=== PATIENT | male | born 1965 | race Caucasian/White ===

== ENCOUNTER → 2017-02-01 | Outpatient (CLI) | payer OTHER ==
--- NOTE | 2017-02-01 08:41 | CT ---
EXAMINATION TYPE: CT abdomen pelvis wo con DATE OF EXAM: 02/01/2017 7:56 AM COMPARISON: None HISTORY: Blood in urine and in stool CT DLP: 767.2 mGycm Automated exposure control for dose reduction was used. TECHNIQUE: Helical acquisition of images from the lung bases through the pelvis. Patient received or al contrast only. FINDINGS: Lack of intravenous contrast may compromise the exam sensitivity. LUNG BASES: No significant abnormality is appreciated. AORTA: No significant abnormality is appreciated. LIVER/GB: No significant abnormality is appreciated. PANCREAS: No significant abnormality is seen. SPLEEN: No significant abnormality is seen. ADRENALS: No significant abnormality is seen. KIDNEYS: No significant abnormality is seen. REPRODUCTIVE ORGANS: No significant abnormality is seen. URINARY BLADDER: No significant abnormality is seen. BOWEL: Retained fecal debris is present throughout the distribution of the colon. There is no bowel obstruction evident. The appendix is not seen. FREE AIR: No Free Air is visible. ASCITES: None visible. PELVIC ADENOPATHY: None visualized. RETROPERITONEAL ADENOPATHY: No Retroperitoneal Adenopathy visible. OSSEOUS STRUCTURES: Degenerative disc changes are present in the visualized spine. Postop change sta tus post posterior fusion L5-S1. Anterolisthesis grade 1 L4-5. Vacuum phenomenon present L4-5 and L5- S1. Dialysis noted in the sacral region, multilevel laminectomies present at the lumbosacral junction . IMPRESSION: LACK OF CONTRAST MAY COMPROMISE SENSITIVITY. CORRELATE FOR FECAL STASIS. Postop changes.
== END | disposition home or self-care (01) ==
LOC: RADCTMAIN 07:36
PROVIDERS: ATTEND Family Medicine
DX: R19.5 Other fecal abnormalities (principal); R31.9 Hematuria, unspecified; Z98.890 Other specified postprocedural states
CPT/HCPCS: 74176

== ENCOUNTER 2018-04-27 22:59 | Emergency (ER) | payer OTHER ==
[2018-04-27 23:08] VITALS: BP 159/106; PULSE 112; RESP 20; TEMP 98.6
--- NOTE | 2018-04-27 23:11 | ED ---
General Adult HPI - General Stated complaint: PAIN,CANCER PT Time Seen by Provider: 04/27/18 23:11 Source: patient Mode of arrival: wheelchair Limitations: no limitations - History of Present Illness Initial comments: Milton is a 52-year-old male with a past medical history of chronic pain secondary to cancer. Patient is on 200 mg of MS Contin orally every morning and every night. Patient reports that all of his medications have been filled by his primary care physician and that he has not been seen in ERs or by other physicians for his pain meds. Patient states that he puts all of his medications in a weekly pill box. He states that he recently had some construction work done at his house and noted that a few pills were missing. Patient states that he has been trying to take only one morning and one night pill for the past 2 days but is now out of pain pills for 2 days and is experiencing significant pain and nausea. Patient's in the ER requesting a refill for 3 days of his pain medications. - Related Data Home Medications Medication Instructions Recorded Confirmed Sertraline [Zoloft] 100 mg PO DAILY 06/08/15 04/27/18 Dextroamphetamine/Amphetamine 30 mg PO BID 04/27/18 04/27/18 [Adderall Xr] Morphine Sulfate ER [Ms Contin] 200 mg PO Q12H 04/27/18 04/27/18 Previous Rx's Medication Instructions Recorded Morphine Sulfate [Ms Contin] 200 mg PO Q12HR 3 Days #12 tab 04/27/18 Allergies Allergy/AdvReac Type Severity Reaction Status Date / Time codeine Allergy Severe Anaphylaxis Verified 04/27/18 23:38 tetracycline [Tetracycline] Allergy Severe Anaphylaxis Verified 04/27/18 23:38 Review of Systems ROS Statement: Those systems with pertinent positive or pertinent negative responses have been documented in the HPI. ROS Other: All systems not noted in ROS Statement are negative. Past Medical History Past Medical History: Cancer, Chest Pain / Angina, Neurologic Disorder, Pneumonia Additional Past Medical History / Comment(s): Fibromatosis diagnosed 1990. BRAIN TUMORS, Back Tumors BACK PAIN History of Any Multi-Drug Resistant Organisms: None Reported Past Surgical History: Back Surgery, Tonsillectomy Additional Past Surgical History / Comment(s): BRAIN SURGERY , SPINAL CORD SURGERIES TO REMOVE TUMORS Last one was 2011, Pt states has had 15 surgeries since diagnosis in 1990. Last done was brain surgery was done by Dr. Lori ohlcomb Past Anesthesia/Blood Transfusion Reactions: Previous Problems w/ Anesthesia Additional Past Anesthesia/Blood Transfusion Reaction / Comment(s): Low blood pressure Past Psychological History: ADD/ADHD, Anxiety, Depression Smoking Status: Never smoker Past Alcohol Use History: None Reported Past Drug Use History: None Reported General Exam Limitations: no limitations General appearance: alert, other (Appears uncomfortable) Head exam: Present: atraumatic, normocephalic Eye exam: Present: normal appearance ENT exam: Present: normal exam Neck exam: Present: normal inspection Respiratory exam: Absent: respiratory distress Cardiovascular Exam: Present: tachycardia GI/Abdominal exam: Present: soft Rectal exam: Present: deferred Neurological exam: Present: alert, oriented X3 Psychiatric exam: Present: normal affect, normal mood Skin exam: Present: warm, dry Course Vital Signs 04/27/18 23:06 Temperature 98.6 F Pulse Rate 112 H Respiratory 20 Rate Blood Pressure 159/106 O2 Sat by Pulse 97 Oximetry Medical Decision Making - Medical Decision Making The patient was seen and evaluated, history is obtained from the patient - patient concern that his pain medications may have been stolen and he is today short after having 2 days of taking only half doses. Review the patient's maps report and noted that though he did have multiple prescriptions for narcotics they were all from his primary care physician Dr. Keane and they were all filled at the same pharmacy. Patient did not have any prescriptions from any other provider in the past one year. On physical exam I do have concern that the patient is in acute narcotic withdrawal, he appears quite uncomfortable, he is mildly tachycardic rate with IM Dilaudid, Zofran ODT for nausea and I will prescribe him his usual nightly dose of MS Contin. In addition I will prescribe the patient 3 days of his normal dose of MS Contin. Patient is scheduled to see his primary care physician by the end of the week for refill of his regular medication. The patient's son at bedside to provide the patient with a ride home after being given narcotic pain medication. Disposition Clinical Impression: Encounter for medication refill Disposition: HOME SELF-CARE Condition: Good Instructions: Chronic Pain (ED) Prescriptions: Morphine Sulfate [Ms Contin] 200 mg PO Q12HR 3 Days #12 tab Is patient prescribed a controlled substance at d/c from ED?: Yes When asked, does pt state using other controlled substances?: Yes If prescribed controlled substance>3 days was MAPS reviewed?: Prescribed <3 Days If Rx opioid, was Start Talking consent form obtained?: Yes Referrals: Arjun Keane MD [Primary Care Provider] - 1-2 days Time of Disposition: 23:52
[2018-04-27] MEDS ORDERED: MORPHINE SULFATE ER 100 MG TABLET PO STA (23:19)
[2018-04-27] MEDS ORDERED: HYDROmorphone 1 MG/ML 1 ML SYRINGE IM STA (23:19)
[2018-04-27] MEDS ORDERED: ONDANSETRON ODT 4 MG TAB PO STA (23:20)
== END 2018-04-28 00:05 | disposition home or self-care (01) ==
LOC: EC 22:59
DX: Z76.0 Encounter for issue of repeat prescription (principal); G89.3 Neoplasm related pain (acute) (chronic); R11.0 Nausea; R00.0 Tachycardia, unspecified; F90.9 Attention-deficit hyperactivity disorder, unspecified type; F41.9 Anxiety disorder, unspecified; F32.9 Major depressive disorder, single episode, unspecified; Z87.39 Personal history of other diseases of the musculoskeletal system and connective tissue; Z85.9 Personal history of malignant neoplasm, unspecified; Z98.890 Other specified postprocedural states; Z79.891 Long term (current) use of opiate analgesic; Z79.899 Other long term (current) drug therapy; Z88.5 Allergy status to narcotic agent; Z88.1 Allergy status to other antibiotic agents
CPT/HCPCS: 99283; 96372; J1170

== ENCOUNTER 2025-01-18 00:08 | Emergency (ER) | payer OTHER ==
--- NOTE | 2025-01-18 00:30 | ED ---
General Adult HPI - General Chief complaint: Extremity Problem,Nontraumatic Stated complaint: med check Time Seen by Provider: 01/18/25 00:30 Source: patient, RN notes reviewed Mode of arrival: wheelchair Limitations: no limitations - History of Present Illness Initial comments: 59 year old male presenting to the ER for evaluation of generalized pain. Patient with a past medical history of neurofibromatosis, brain surgery and 21 spinal cord surgies. Patient reports he is presenting to the ER pain control. He is typically prescribed MS Contin 200 mg twice daily but states he is unable to get this refilled into tomorrow at 3 PM. He reports his pain is currently out of control and he has no medications that are controlling pain. Pain is generalized to all joints causing him to lose sleep. Patient denies any injuries, falls or other traumas. Patient denies any other complaints. - Related Data Home Medications Medication Instructions Recorded Confirmed Sertraline [Zoloft] 100 mg PO DAILY 06/08/15 04/27/18 Dextroamphetamine/Amphetamine 30 mg PO BID 04/27/18 04/27/18 [Adderall Xr] Morphine Sulfate ER [Ms Contin] 200 mg PO Q12H 04/27/18 04/27/18 Previous Rx's Medication Instructions Recorded Morphine Sulfate [Ms Contin] 200 mg PO Q12HR 3 Days #12 tab 04/27/18 Allergies Allergy/AdvReac Type Severity Reaction Status Date / Time codeine Allergy Severe Anaphylaxis Verified 01/18/25 00:18 tetracycline [Tetracycline] Allergy Severe Anaphylaxis Verified 01/18/25 00:18 Review of Systems ROS Statement: Those systems with pertinent positive or pertinent negative responses have been documented in the HPI. ROS Other: All systems not noted in ROS Statement are negative. Past Medical History Past Medical History: Cancer, Chest Pain / Angina, Neurologic Disorder, Pneumonia Additional Past Medical History / Comment(s): Fibromatosis diagnosed 1990. BRAIN TUMORS, Back Tumors BACK PAIN History of Any Multi-Drug Resistant Organisms: None Reported Past Surgical History: Back Surgery, Tonsillectomy Additional Past Surgical History / Comment(s): BRAIN SURGERY , SPINAL CORD SURGERIES TO REMOVE TUMORS Last one was 2011, Pt states has had 15 surgeries since diagnosis in 1990. Last done was brain surgery was done by Dr. Lori holcomb Past Anesthesia/Blood Transfusion Reactions: Previous Problems w/ Anesthesia Additional Past Anesthesia/Blood Transfusion Reaction / Comment(s): Low blood pressure Past Psychological History: ADD/ADHD, Anxiety, Depression Smoking Status: Never smoker Past Alcohol Use History: None Reported Past Drug Use History: None Reported General Exam Limitations: no limitations General appearance: alert, in no apparent distress Respiratory exam: Present: normal lung sounds bilaterally. Absent: respiratory distress, wheezes, rales, rhonchi, stridor Cardiovascular Exam: Present: regular rate, normal rhythm, normal heart sounds. Absent: systolic murmur, diastolic murmur, rubs, gallop, clicks Extremities exam: Present: full ROM, normal capillary refill (2+ bilateral radial and DP pulse). Absent: tenderness, pedal edema, joint swelling, calf tenderness Neurological exam: Present: alert, oriented X3, CN II-XII intact Psychiatric exam: Present: anxious Skin exam: Present: warm, dry, intact, normal color. Absent: rash Course Vital Signs 01/18/25 01/18/25 00:19 01:41 Temperature 97.8 F 97.9 F Pulse Rate 111 H 104 H Respiratory 22 21 Rate Blood Pressure 157/84 145/76 O2 Sat by Pulse 95 98 Oximetry Medical Decision Making - Medical Decision Making Was pt. sent in by a medical professional or institution (, PA, [employer], urgent care, hospital, or senior living...) When possible be specific @ -No Did you speak to anyone other than the patient for history (EMS, parent, family, police, friend...)? What history was obtained from this source @ -No Did you review nursing and triage notes (agree or disagree)? Why? @ -I reviewed and agree with nursing and triage notes Were old charts reviewed (outside hosp., previous admission, EMS record, old EKG, old radiological studies, urgent care reports/EKG's, senior living records)? Report findings @ -No old charts were reviewed Differential Diagnosis (chest pain, altered mental status, abdominal pain women, abdominal pain men, vaginal bleeding, weakness, fever, dyspnea, syncope, headache, dizziness, GI bleed, back pain, seizure, CVA, palpatations, mental health, musculoskeletal)? @ -Differential Musculoskeletal: Muscular strain, contusion, ligament sprain, fracture, arthritis, septic arthritis, bursitis, cellulitis, muscle spasm, nerve compression, DVT, arterial occlusion, herpes zoster, electrolyte abnormality, tumor.... This is not meant to be in all inclusive list EKG interpreted by me (3pts min.). @ -None X-rays interpreted by me (1pt min.). @ -None done CT interpreted by me (1pt min.). @ -None done U/S interpreted by me (1pt. min.). @ -None done What testing was considered but not performed or refused? (CT, X-rays, U/S, labs)? Why? @ -None What meds were considered but not given or refused? Why? @ -None Did you discuss the management of the patient with other professionals (professionals i.e. , PA, [employer], lab, RT, psych nurse, social service liaison, bakery worker, teacher, ordnance officer, nursery manager)? Give summary @ -No Was smoking cessation discussed for >3mins.? @ -No Was critical care preformed (if so, how long)? @ -No Were there social determinants of health that impacted care today? How? (Homelessness, low income, unemployed, alcoholism, drug addiction, transportation, low edu. Level, literacy, decrease access to med. care, detention, rehab)? @ -No Was there de-escalation of care discussed even if they declined (Discuss DNR or withdrawal of care, Hospice)? DNR status @ -No What co-morbidities impacted this encounter? (DM, HTN, Smoking, COPD, CAD, Cancer, CVA, ARF, Chemo, Hep., AIDS, mental health diagnosis, sleep apnea, morbid obesity)? @ -Neurofibromatosis 21 spinal cord surgeries, brain surgery Was patient admitted / discharged? Hospital course, mention meds given and route, prescriptions, significant lab abnormalities, going to OR and other pertinent info. @ -Discharge. 59-year-old male presented the ER for evaluation of generalized pain. Patient seeking pain control as he is unable to fill his MS Contin 200 mg prescription until tomorrow at 3pm. Patient does appear anxious on exam this is likely contributing to tachycardia. Vitals otherwise within acceptable limits. Patient is neurovascularly intact. Denies any injuries or traumas. Patient will receive IM morphine for pain control and discharged with p.o. morphine 100 mg to take upon waking in the morning until he can fill his prescription. Patient discharged stable condition with follow-up to PCP. Patient verbally expressed understanding agreement with care plan. Return parameters discussed. Case discussed with ED attending, Dr. Krueger Undiagnosed new problem with uncertain prognosis? @ -No Drug Therapy requiring intensive monitoring for toxicity (Heparin, Nitro, Insulin, Cardizem)? @ -No Were any procedures done? @ -No Diagnosis/symptom? @ -Generalized pain Acute, or Chronic, or Acute on Chronic? @ -Chronic Uncomplicated (without systemic symptoms) or Complicated (systemic symptoms)? @ -Uncomplicated Side effects of treatment? @ -No Exacerbation, Progression, or Severe Exacerbation? @ -No Poses a threat to life or bodily function? How? (Chest pain, [place], MA, pneumonia, PE, COPD, DKA, ARF, appy, cholecystitis, CVA, Diverticulitis, Homicidal, Suicidal, threat to staff... and all critical care pts) @ -Unlikely Disposition Clinical Impression: Chronic pain Disposition: HOME SELF-CARE Condition: Stable Additional Instructions: Follow-up with PCP. Return to the ER for any new or worsening symptoms. Is patient prescribed a controlled substance at d/c from ED?: No Referrals: Arjun Keane MD [Primary Care Provider] - 1-2 days Time of Disposition: 01:33
[2025-01-18] MEDS: MORPHINE SULFATE 4 MG/ML SYRINGE IM STA (00:35)
[2025-01-18] MEDS: ONDANSETRON ODT 4 MG TAB PO STA (00:36)
[2025-01-18 01:41] VITALS: BP 145/76; PULSE 104; RESP 21; TEMP 97.9
[2025-01-18] MEDS: MORPHINE SULFATE 2 MG/ML SYRINGE IM ONE (02:21)
[2025-01-18] MEDS: MORPHINE SULFATE ER 100 MG TABLET PO ONE (02:23)
== END 2025-01-18 02:26 | disposition home or self-care (01) ==
LOC: EC 00:08
DX: G89.29 Other chronic pain (principal); Z88.1 Allergy status to other antibiotic agents; Z88.6 Allergy status to analgesic agent
CPT/HCPCS: 99283; 96372 ×2; J2270 ×2